=== PATIENT | male | born 1995 | race Caucasian/White ===

== ENCOUNTER 2019-01-04 13:55 | Emergency (ER) | payer SELFPAY ==
[~2019-01-04] VITALS: Ht 177.8 cm; Wt 59.0 kg
[2019-01-04 14:22] VITALS: BP 111/69
--- NOTE | 2019-01-04 15:18 | RAD ---
EXAM: Abdomen and pelvis CT without intravenous contrast. HISTORY: Left flank pain. TECHNIQUE: Computed tomographic images of the abdomen and pelvis were obtained without contrast. Multiplanar reformatting was performed. *One or more of the following individualized dose reduction techniques were utilized for this examination: 1. Automated exposure control. 2. Adjustment of the mA and/or kV according to patient size. 3. Use of iterative reconstruction technique. COMPARISON: None. FINDINGS: Evaluation of the lower thorax is unremarkable. No hepatic lesion is seen. The gallbladder, pancreas, spleen and adrenal glands are unremarkable. There is no evidence of nephroureterolithiasis or hydronephrosis. There is no appendicitis. There is circumferential wall thickening involving the mid and distal sigmoid colon. This is difficult to assess in the absence of contrast. No pathologically enlarged lymph node is seen. The bladder is unremarkable. There is no suspicious osseous lesion. IMPRESSION: 1. Mid and distal sigmoid wall thickening. This is greater than expected for underdistention or peristalsis. Correlate for possible colitis. 2. No evidence of nephroureterolithiasis or hydronephrosis. Electronically signed by: Ginny Choi MD (01/04/2019 3:15 PM) [place] [id number]
--- NOTE | 2019-01-04 15:30 | PHYS DOC ---
Past Medical History Past Medical History: Anxiety, Depression Past Surgical History: No Surgical History Alcohol Use: Sober Drug Use: None Social History Narrative: STATES 6 YEARS CLEAN Adult General Chief Complaint Chief Complaint: ABDOMINAL PAIN HPI HPI 23-year-old male presents with an acute onset of left lower quadrant discomfort. He states this started approximately 12:30 this afternoon. He states he had a similar episode several months ago that caused him to vomit and nearly pass out. He denies any fever chills or sweats. He denies any melena or hematochezia. He has not had any unexplained weight loss. He denies any gross hematuria. Currently he states the pain is moderate to severe, sharp and unrelenting.[] Review of Systems Review of Systems Constitutional: Denies fever or chills [] Eyes: Denies change in visual acuity, redness, or eye pain [] HENT: Denies nasal congestion or sore throat [] Respiratory: Denies cough or shortness of breath [] Cardiovascular: No additional information not addressed in HPI [] GI: Per history of present illness[] : Denies dysuria or hematuria [] Musculoskeletal: Denies back pain or joint pain [] Integument: Denies rash or skin lesions [] Neurologic: Denies headache, focal weakness or sensory changes [] Endocrine: Denies polyuria or polydipsia [] All other systems were reviewed and found to be within normal limits, except as documented in this note. Current Medications Current Medications Current Medications Medications (Trade) Dose Ordered Sig/Francesca Start Time Stop Time Status Last Admin Dose Admin Ketorolac Tromethamine (Toradol 30mg Vial) 30 mg 1X ONCE 01/04/19 16:00 01/04/19 16:01 DC 01/04/19 16:01 30 MG Ondansetron HCl (Zofran) 4 mg 1X ONCE 01/04/19 16:00 01/04/19 16:01 DC 01/04/19 16:00 4 MG Sodium Chloride 1,000 ml @ 1,000 mls/hr 1X ONCE 01/04/19 16:00 01/04/19 16:59 01/04/19 16:00 1,000 MLS/HR Allergies Allergies Allergies Coded Allergies Type Severity Reaction Last Updated Verified No Known Drug Allergies 01/04/19 No Physical Exam Physical Exam Constitutional: Well developed, well nourished, mild to moderate distress, non- toxic appearance. [] HENT: Normocephalic, atraumatic, bilateral external ears normal, oropharynx moist, no oral exudates, nose normal. [] Eyes: PERRLA, EOMI, conjunctiva normal, no discharge. [] Neck: Normal range of motion, no tenderness, supple, no stridor. [] Cardiovascular:Heart rate regular rhythm, no murmur [] Lungs & Thorax: Bilateral breath sounds clear to auscultation [] Abdomen: Mild tender to palp left lower quadrant no rebound or guarding[] Skin: Warm, dry, no erythema, no rash. [] Back: No tenderness, no CVA tenderness. [] Extremities: No tenderness, no cyanosis, no clubbing, ROM intact, no edema. [] Neurologic: Alert and oriented X 3, normal motor function, normal sensory function, no focal deficits noted. [] Psychologic: Unusual affect. [] Current Patient Data Vital Signs Vital Signs Date Time Temp Pulse Resp B/P (MAP) Pulse Ox O2 Delivery O2 Flow Rate FiO2 01/04/19 14:22 98.6 70 16 111/69 (83) 99 Room Air 98.6 Lab Values Laboratory Tests Test 01/04/19 15:30 White Blood Count 4.7 x10^3/uL (4.0-11.0) Red Blood Count 4.13 x10^6/uL (4.30-5.70) L Hemoglobin 13.7 g/dL (13.0-17.5) Hematocrit 40.0 % (39.0-53.0) Mean Corpuscular Volume 97 fL (79-100) Mean Corpuscular Hemoglobin 33 pg (25-35) Mean Corpuscular Hemoglobin Concent 34 g/dL (31-37) Red Cell Distribution Width 11.4 % (11.5-14.5) L Platelet Count 154 x10^3/uL (140-400) Neutrophils (%) (Auto) 56 % (31-73) Lymphocytes (%) (Auto) 31 % (24-48) Monocytes (%) (Auto) 9 % (0-9) Eosinophils (%) (Auto) 4 % (0-3) H Basophils (%) (Auto) 1 % (0-3) Neutrophils # (Auto) 2.6 x10^3/uL (1.8-7.7) Lymphocytes # (Auto) 1.5 x10^3/uL (1.0-4.8) Monocytes # (Auto) 0.4 x10^3/uL (0.0-1.1) Eosinophils # (Auto) 0.2 x10^3/uL (0.0-0.7) Basophils # (Auto) 0.0 x10^3/uL (0.0-0.2) Sodium Level 143 mmol/L (136-145) Potassium Level 4.0 mmol/L (3.5-5.1) Chloride Level 105 mmol/L (98-107) Carbon Dioxide Level 28 mmol/L (21-32) Anion Gap 10 (6-14) Blood Urea Nitrogen 19 mg/dL (8-26) Creatinine 1.1 mg/dL (0.7-1.3) Estimated GFR (Cockcroft-Gault) 84.5 BUN/Creatinine Ratio 17 (6-20) Glucose Level 88 mg/dL (70-99) Calcium Level 9.2 mg/dL (8.5-10.1) Total Bilirubin 0.5 mg/dL (0.2-1.0) Aspartate Amino Transferase (AST) 19 U/L (15-37) Alanine Aminotransferase (ALT) 21 U/L (16-63) Alkaline Phosphatase 64 U/L (46-116) Total Protein 7.3 g/dL (6.4-8.2) Albumin 4.5 g/dL (3.4-5.0) Albumin/Globulin Ratio 1.6 (1.0-1.7) Lipase 74 U/L (73-393) Laboratory Tests 01/04/19 15:30 Laboratory Tests 01/04/19 15:30 EKG EKG [] Radiology/Procedures Radiology/Procedures [] Impressions: STATUS: REG ERORD. PHYSICIAN: JUAN JOSE AMAYA DO REASON: left flank pain PROCEDURE: CT ABDOMEN PELVIS WO CONTRAST EXAM: Abdomen and pelvis CT without intravenous contrast. HISTORY: Left flank pain. TECHNIQUE: Computed tomographic images of the abdomen and pelvis were obtained without contrast. Multiplanar reformatting was performed. *One or more of the following individualized dose reduction techniques were utilized for this examination: 1. Automated exposure control. 2. Adjustment of the mA and/or kV according to patient size. 3. Use of iterative reconstruction technique. COMPARISON: None. FINDINGS: Evaluation of the lower thorax is unremarkable. No hepatic lesion is seen. The gallbladder, pancreas, spleen and adrenal glands are unremarkable. There is no evidence of nephroureterolithiasis or hydronephrosis. There is no appendicitis. There is circumferential wall thickening involving the mid and distal sigmoid colon. This is difficult to assess in the absence of contrast. No pathologically enlarged lymph node is seen. The bladder is unremarkable. There is no suspicious osseous lesion. IMPRESSION: 1. Mid and distal sigmoid wall thickening. This is greater than expected for underdistention or peristalsis. Correlate for possible colitis. 2. No evidence of nephroureterolithiasis or hydronephrosis. Course & Med Decision Making Course & Med Decision Making Pertinent Labs and Imaging studies reviewed. (See chart for details) [ED course: Evaluation reveals a 23-year-old healthy male who presents mild distress. His abdominal exam revealed some left lower quadrant tenderness. CT scan showed colitis. She was given IV fluids and Toradol during his stay in the department which did help ease his pain. I'll start him on antibiotics and steroids as an outpatient and encouraged him to follow up with GI.] Dragon Disclaimer Dragon Disclaimer This electronic medical record was generated, in whole or in part, using a voice recognition dictation system. Departure Departure Impression: Primary Impression: Colitis Disposition: 01 HOME, SELF-CARE Condition: IMPROVED Referrals: NO PCP (PCP) Patient Instructions: Colitis Additional Instructions: I have given you follow up information to a detention worker. It is important that she follow up with him as soon as possible. Scripts Prednisone (PREDNISONE) 20 Mg Tablet 1 TAB PO TID PRN for COUGH for 5 Days, #15 TAB Prov: JUAN JOSE AMAYA DO 01/04/19 Ciprofloxacin Hcl (CIPRO) 500 Mg Tablet 1 TAB PO BID PRN for colitis, #20 TAB Prov: JUAN JOSE AMAYA DO 01/04/19 JUAN JOSE AMAYA DO Jan 04, 2019 15:30
[2019-01-04 15:36] LABS: BASO % 1 % (0-3); EOS # 0.2 x10^3/uL (0.0-0.7); EOS % 4 % (0-3); HEMOGLOBIN 13.7 g/dL (13.0-17.5); LYMPH # 1.5 x10^3/uL (1.0-4.8); LYMPH % 31 % (24-48); MEAN CORPUSCULAR HEMOGLOBIN 33 pg (25-35); MEAN CORPUSCULAR HGB CONC 34 g/dL (31-37); MEAN CORPUSCULAR VOLUME 97 fL (79-100); MONO # 0.4 x10^3/uL (0.0-1.1); MONO % 9 % (0-9); NEUT # 2.6 x10^3/uL (1.8-7.7); NEUT % 56 % (31-73); PLATELET COUNT 154 x10^3/uL (140-400); RED BLOOD COUNT 4.13 x10^6/uL (4.30-5.70); RED CELL DISTRIBUTION WIDTH 11.4 % (11.5-14.5); WHITE BLOOD COUNT 4.7 x10^3/uL (4.0-11.0)
[2019-01-04 15:47] LABS: CALCIUM 9.2 mg/dL (8.5-10.1); CREATININE 1.1 mg/dL (0.7-1.3); GFR 84.5
[2019-01-04 15:53] LABS: ALBUMIN 4.5 g/dL (3.4-5.0); ALBUMIN/GLOBULIN RATIO 1.6 (1.0-1.7); TOTAL BILIRUBIN 0.5 mg/dL (0.2-1.0); TOTAL PROTEIN 7.3 g/dL (6.4-8.2)
[2019-01-04] MEDS ORDERED: ONDANSETRON PF 4 MG/2 ML VIAL. IV ONE (16:00)
[2019-01-04] MEDS ORDERED: KETOROLAC 30 MG/ML VIAL. IV ONE (16:00)
[2019-01-04] MEDS ORDERED: IV NORMAL SALINE 1000ML BAG 1,000 ML IV ONE (16:00)
[2019-01-04 16:06] LABS: BILIRUBIN,URINE NEGATIVE (NEG); CLARITY,URINE CLEAR; COLOR,URINE YELLOW; NITRITE,URINE NEGATIVE (NEG); PH,URINE 8.5; PROTEIN,URINE NEGATIVE (NEG-TRACE); UROBILINOGEN,URINE 0.2 mg/dL (0.2 mg/dL)
[2019-01-04] MEDS ORDERED: PRED20TA PO (16:11)
[2019-01-04] MEDS ORDERED: CIPR500T94 PO (16:11)
[2019-01-04 16:20] LABS: RBC,URINE OCC /HPF (0-2)
[2019-01-04 16:24] LABS: BACTERIA,URINE 0 /HPF (0-FEW); WBC,URINE 0 /HPF (0-4)
== END 2019-01-04 17:20 | disposition home or self-care (01) ==
LOC: ER 13:55
DX: K52.9 Noninfective gastroenteritis and colitis, unspecified (principal)
CPT/HCPCS: 36415; 74176; 80053; 81001; 83690; 85025; 96361; 96374; 96375; 99285; J1885; J2405; J7030